=== PATIENT | female | born 1990 | race Caucasian/White ===

== ENCOUNTER 2021-10-02 16:52 | Emergency (ER) | payer SELFPAY ==
--- NOTE | 2021-10-02 17:04 | EDM.PDOC ---
ED HPI GENERAL MEDICAL PROBLEM - General Stated Complaint: COVID, VOMITTING, DIARRHEA Time Seen by Provider: 10/02/21 16:58 Source of Information: Reports: Patient History Limitations: Reports: No Limitations - History of Present Illness INITIAL COMMENTS - FREE TEXT/NARRATIVE: HISTORY AND PHYSICAL: History of present illness: The patient is a 30-year-old female who presents to the emergency department after testing positive for a home COVID test with complaints of vomiting, muscle aches, headache, earache, diarrhea, coughing, and nausea that started on 09/27/2021. The patient states that she is unable to drink or eat as she is unable to keep it down. The patient states that she has had occasional chills and has not been checking her temperature at home. Patient denies shortness of breath at this time. Patient denies any change in vision, syncope or near syncope. Denies any chest pain, back pain, or shortness of breath. Denies any constipation or dysuria. Has not noted any blood in urine or stool. Review of systems: As per history of present illness and below otherwise all systems reviewed and negative. Past medical history: As per history of present illness and as reviewed below otherwise noncontributory. Surgical history: As per history of present illness and as reviewed below otherwise noncontributory. Social history: See social history for further information Family history: As per history of present illness and as reviewed below otherwise noncontributory. Physical exam: General: Well developed and well nourished. Alert and orientated x 3. Nontoxic in appearance and in no acute distress. Vital signs are stable and have been reviewed by me. Nursing notes were reviewed. HEENT: Atraumatic, normocephalic, pupils equal and reactive bilaterally, negative for conjunctival pallor or scleral icterus, mucous membranes moist, TMs normal bilaterally, throat clear, neck supple, nontender, trachea midline. No drooling or trismus noted. No meningeal signs. No hot potato voice noted. Lungs: Clear to auscultation bilaterally. No wheezes, rales, or rhonchi. Chest nontender. Normal work of breathing, no accessory muscles used. Heart: S1S2, regular rate and rhythm without overt murmur, gallops, or rubs. No JVD. No peripheral edema Abdomen: Soft, nondistended, nontender. Normoactive bowel sounds. Negative for masses or costovertebral tenderness. Skin: Intact, warm, dry. No lesions or rashes noted. Hematologic: No petechiae or purpra. Mucosa appropriate color and normal nail bed color and refill. Extremities: Atraumatic, moves all extremities per self without difficulty or deficits, negative for cords or calf pain. Neurovascular unremarkable. Neuro: Awake, alert, oriented. Cranial nerves II through XII unremarkable. Cerebellum unremarkable. Motor and sensory unremarkable throughout. Exam nonfocal. Psychiatric: Mood and affect are appropriate. Normal thought process. Answering questions appropriately. Notes: *This patient was seen and evaluated during the 2019 SARS-CoV-2 novel coronavirus pandemic period. Community viral transmission is ongoing at time of this encounter and the emergency department is operating under pandemic response procedures. As stated above the patient is a 30-year-old female who tested positive for Covid at home. She is complaining of vomiting, muscle aches, headache, earaches, diarrhea, coughing and nausea. She has not been drinking or eating for the last 5 days. We will do a Covid work-up. I will treat the patient with IV fluids, Toradol, and Zofran. The patient is agreeable with this plan. The patient remains tachycardic after 1 L of IV fluids. I will order another liter and do a D-dimer. The patient's D-dimer is slightly elevated at 0.94 and so I will order a PE study of the chest. CT chest angio IMPRESSION: 1. No evidence of pulmonary thromboemboli. 2. Bilateral COVID-19 pneumonia. I informed the patient of the results and we discussed the benefits and risk of the monoclonal antibodies. I obtain the patient's consent for the monoclonal antibodies as she has a BMI of over 25 and she is not vaccinated against COVID-19. I sent an prescription for Zofran 4 mg ODT every 6 hours as needed for nausea to the patient's pharmacy. I gave the patient detailed instructions on when she would need to return to the emergency department such as when her lips turn blue or if she would like to get a oxygen saturation monitor and if it drops below 90%. The patient verbalized understanding. Patient is agreeable with this discharge plan I have talked with the patient about today's findings, in addition to providing specific details for plan of care. Reassessment at the time of disposition demonstrates that the patient is in no acute distress. The patient is stable for discharge, counseling was provided and we discussed in great detail signs and symptoms that would prompt them to return to the Emergency Department. Medication, follow up and supportive care measures were reviewed and discussed. Voices understanding and is agreeable to plan of care. Denies any further questions or concerns at this time. Diagnostics: CBC, CMP, CXR, EKG, Covid/flu swab Therapeutics: IV fluids, Toradol, Zofran Prescription: Zofran 4 mg ODT every 6 hours as needed for nausea Impression: COVID-19 pneumonia, COVID-19 Plan: 1. Your COVID-19 screening is positive. That means you do have the coronavirus and you are considered contagious. Your vital signs and oxygen saturation are well enough that you were able to monitor your symptoms at home. Continue to monitor for trouble breathing, new confusion or inability to arouse, bluish lips or face or any of the other symptoms we discussed -if this occurs please return to the emergency room. 1a. You were set up for monoclonal antibodies. I have given you a patient actually can I have received your authorization after we discussed the risk and benefits. Be sure to answer your phone when the clinic calls for your appointment. You only had 10 days from symptom onset to get this completed. 1b. 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 2. Please self quarantine until cleared by [facility] Department. Inform any persons that you have been in contact with since you started becoming symptomatic that you have tested positive; they should be made aware and take the appropriate steps as needed. 3. You can take NyQuil during the evening to help get a restful night sleep. May alternate Tylenol and ibuprofen as needed for pain and fever management. 4. The [facility] health department will be calling you and following up with you. The [place] COVID 19 Hotline phone number , They are open Monday - Monday 7am - 7pm. Follow up with your primary care provider for re-evaluation and re-testing after the 10 day quarantine and discuss when you should be seen. Definitive disposition and diagnosis as appropriate pending reevaluation and review of above. Bilateral Abdomen Pain Score (Numeric/FACES): 5 - Related Data Allergies Allergy/AdvReac Type Severity Reaction Status Date / Time No Known Allergies Allergy Verified 10/02/21 17:08 Home Meds: Home Meds Ondansetron [Zofran ODT] 4 mg PO Q6H PRN #10 tab.dis 10/02/21 [Rx] ED ROS GENERAL - Review of Systems Review Of Systems: Comprehensive ROS is negative, except as noted in HPI. ED EXAM, GENERAL - Physical Exam Exam: See Below (See dictation) Course - Vital Signs Last Recorded V/S: Last Vital Signs Temp 100 F 10/02/21 17:09 Pulse 106 H 10/02/21 21:26 Resp 18 10/02/21 21:26 BP 126/86 10/02/21 21:26 Pulse Ox 97 10/02/21 21:26 - Orders/Labs/Meds Orders: Active Orders 24 hr Category Date Time Status Sodium Chloride 0.9% [Saline Flush] Med 10/02/21 17:28 Active 10 ml FLUSH ASDIRECTED PRN Sodium Chloride 0.9% [Saline Flush] Med 10/02/21 17:28 Active 2.5 ml FLUSH ASDIRECTED PRN Saline Lock Insert [OM.PC] Stat Oth 10/02/21 17:28 Ordered Medication Orders Sodium Chloride (Sodium Chloride 0.9% 10 Ml Syringe) 10 ml FLUSH ASDIRECTED PRN PRN Reason: Keep Vein Open Last Admin: 10/02/21 17:37 Dose: 10 ml Documented by: FERNANDO Sodium Chloride (Sodium Chloride 0.9% 2.5 Ml Syringe) 2.5 ml FLUSH ASDIRECTED PRN PRN Reason: Keep Vein Open Last Admin: 10/02/21 17:38 Dose: 2.5 ml Documented by: FERNANDO Labs: Laboratory Tests 10/02/21 10/02/21 10/02/21 Range/Units 17:41 17:41 17:41 WBC 4.00 (4.0-11.0) K/uL RBC 4.83 (4.30-5.90) M/uL Hgb 14.6 (12.0-16.0) g/dL Hct 43.2 (36.0-46.0) % MCV 89.4 (80.0-98.0) fL MCH 30.2 (27.0-32.0) pg MCHC 33.8 (31.0-37.0) g/dL RDW Std Deviation 42.7 (28.0-62.0) fl RDW Coeff of [place] 13 (11.0-15.0) % Plt Count 144 L (150-400) K/uL MPV 9.70 (7.40-12.00) fL Neut % (Auto) 79.2 (48.0-80.0) % Lymph % (Auto) 18.0 (16.0-40.0) % [place] % (Auto) 2.8 (0.0-15.0) % Eos % (Auto) 0.0 (0.0-7.0) % Baso % (Auto) 0.0 (0.0-1.5) % Neut # (Auto) 3.2 (1.4-5.7) K/uL Lymph # (Auto) 0.7 (0.6-2.4) K/uL [place] # (Auto) 0.1 (0.0-0.8) K/uL Eos # (Auto) 0.0 (0.0-0.7) K/uL Baso # (Auto) 0.0 (0.0-0.1) K/uL Nucleated RBC % 0.0 /100WBC Nucleated RBCs # 0 K/uL D-Dimer, Quantitative 0.94 H (0.0-0.50) mg/L FEU Sodium 139 (136-145) mmol/L Potassium 3.7 (3.5-5.1) mmol/L Chloride 101 (98-107) mmol/L Carbon Dioxide 26.8 (21.0-32.0) mmol/L BUN 8 (7.0-18.0) mg/dL Creatinine 0.9 (0.6-1.0) mg/dL Est Cr Clr Drug Dosing 69.60 mL/min Estimated GFR (MDRD) > 60.0 ml/min Glucose 98 (74-106) mg/dL Calcium 8.1 L (8.5-10.1) mg/dL Total Bilirubin 0.2 (0.2-1.0) mg/dL AST 37 (15-37) IU/L ALT 45 (14-63) IU/L Alkaline Phosphatase 68 (46-116) U/L Total Protein 7.3 (6.4-8.2) g/dL Albumin 3.5 (3.4-5.0) g/dL Globulin 3.8 (2.6-4.0) g/dL Albumin/Globulin Ratio 0.9 (0.9-1.6) Influenza Type A RNA (NEGATIVE) Influenza Type B RNA (NEGATIVE) SARS-CoV-2 RNA (DANICA) (NEGATIVE) 10/02/21 Range/Units 17:43 WBC (4.0-11.0) K/uL RBC (4.30-5.90) M/uL Hgb (12.0-16.0) g/dL Hct (36.0-46.0) % MCV (80.0-98.0) fL MCH (27.0-32.0) pg MCHC (31.0-37.0) g/dL RDW Std Deviation (28.0-62.0) fl RDW Coeff of [place] (11.0-15.0) % Plt Count (150-400) K/uL MPV (7.40-12.00) fL Neut % (Auto) (48.0-80.0) % Lymph % (Auto) (16.0-40.0) % [place] % (Auto) (0.0-15.0) % Eos % (Auto) (0.0-7.0) % Baso % (Auto) (0.0-1.5) % Neut # (Auto) (1.4-5.7) K/uL Lymph # (Auto) (0.6-2.4) K/uL [place] # (Auto) (0.0-0.8) K/uL Eos # (Auto) (0.0-0.7) K/uL Baso # (Auto) (0.0-0.1) K/uL Nucleated RBC % /100WBC Nucleated RBCs # K/uL D-Dimer, Quantitative (0.0-0.50) mg/L FEU Sodium (136-145) mmol/L Potassium (3.5-5.1) mmol/L Chloride (98-107) mmol/L Carbon Dioxide (21.0-32.0) mmol/L BUN (7.0-18.0) mg/dL Creatinine (0.6-1.0) mg/dL Est Cr Clr Drug Dosing mL/min Estimated GFR (MDRD) ml/min Glucose (74-106) mg/dL Calcium (8.5-10.1) mg/dL Total Bilirubin (0.2-1.0) mg/dL AST (15-37) IU/L ALT (14-63) IU/L Alkaline Phosphatase (46-116) U/L Total Protein (6.4-8.2) g/dL Albumin (3.4-5.0) g/dL Globulin (2.6-4.0) g/dL Albumin/Globulin Ratio (0.9-1.6) Influenza Type A RNA NEGATIVE (NEGATIVE) Influenza Type B RNA NEGATIVE (NEGATIVE) SARS-CoV-2 RNA (DANICA) POSITIVE H (NEGATIVE) Meds: Medications Generic Name Dose Route Start Last Admin Trade Name Kalee PRN Reason Stop Dose Admin Sodium Chloride 10 ml 10/02/21 17:28 10/02/21 17:37 Sodium Chloride 0.9% 10 Ml Syringe FLUSH 10 ml ASDIRECTED PRN Administration Keep Vein Open Sodium Chloride 2.5 ml 10/02/21 17:28 10/02/21 17:38 Sodium Chloride 0.9% 2.5 Ml Syringe FLUSH 2.5 ml ASDIRECTED PRN Administration Keep Vein Open Discontinued Medications Generic Name Dose Route Start Last Admin Trade Name Kalee PRN Reason Stop Dose Admin Sodium Chloride 1,000 mls @ 999 mls/hr 10/02/21 17:28 10/02/21 17:40 Normal Saline IV 10/02/21 18:28 999 mls/hr .BOLUS ONE Administration Sodium Chloride 1,000 mls @ 999 mls/hr 10/02/21 18:52 10/02/21 18:58 Normal Saline IV 10/02/21 19:52 999 mls/hr .BOLUS ONE Administration Iopamidol 100 ml 10/02/21 19:46 10/02/21 20:12 Iopamidol 755 Mg/Ml 500 Ml Multipack Bottle IVPUSH 10/02/21 19:47 100 ml ONETIME ONE Administration Ketorolac Tromethamine 30 mg 10/02/21 17:28 10/02/21 17:36 Ketorolac 30 Mg/Ml Sdv IVPUSH 10/02/21 17:29 30 mg ONETIME ONE Administration Metoclopramide HCl 5 mg 10/02/21 20:33 10/02/21 20:35 Metoclopramide 10 Mg/2 Ml Sdv IVPUSH 10/02/21 20:34 5 mg ONETIME ONE Administration Metoclopramide HCl Confirm 10/02/21 20:34 Metoclopramide 10 Mg/2 Ml Sdv Administered 10/02/21 20:35 Dose 10 mg .ROUTE .STK-MED ONE Ondansetron HCl 4 mg 10/02/21 17:28 10/02/21 17:37 Ondansetron 4 Mg/2 Ml Sdv IVPUSH 10/02/21 17:29 4 mg ONETIME ONE Administration Departure - Departure Time of Disposition: 21:12 Disposition: Home, Self-Care 01 Condition: Good Clinical Impression: COVID-19, 2019 novel coronavirus-infected pneumonia (NCIP) - Discharge Information *PRESCRIPTION DRUG MONITORING PROGRAM REVIEWED*: Not Applicable *COPY OF PRESCRIPTION DRUG MONITORING REPORT IN PATIENT YARELI: Not Applicable Prescriptions: Ondansetron [Zofran ODT] 4 mg PO Q6H PRN #10 tab.dis PRN Reason: Nausea Instructions: COVID-19: What to Do If You Are Sick- [facility] (12/30/2020) Referrals: Jonathan Klein MD [Primary Care Provider] - Forms: ED Department Discharge Additional Instructions: The following information is given to patients seen in the emergency department who are being discharged to home. This information is to outline your options for follow-up care. We provide all patients seen in our emergency department with a follow-up referral. The need for follow-up, as well as the timing and circumstances, are variable depending upon the specifics of your emergency department visit. If you don't have a primary care physician on staff, we will provide you with a referral. We always advise you to contact your personal physician following an emergency department visit to inform them of the circumstance of the visit and for follow-up with them and/or the need for any referrals to a consulting specialist. The emergency department will also refer you to a specialist when appropriate. This referral assures that you have the opportunity for follow-up care with a specialist. All of these measure are taken in an effort to provide you with optimal care, which includes your follow-up. Under all circumstances we always encourage you to contact your private physician who remains a resource for coordinating your care. When calling for follow-up care, please make the office aware that this follow-up is from your recent emergency room visit. If for any reason you are refused follow-up, please contact the [facility] Emergency Department at and asked to speak to the emergency department charge nurse. [facility] [address] [place] [id number] [facility] [address] [place] [id number] Plan: 1. Your COVID-19 screening is positive. That means you do have the coronavirus and you are considered contagious. Your vital signs and oxygen saturation are well enough that you were able to monitor your symptoms at home. Continue to monitor for trouble breathing, new confusion or inability to arouse, bluish lips or face or any of the other symptoms we discussed -if this occurs please return to the emergency room. 1a. You were set up for monoclonal antibodies. I have given you a patient actually can I have received your authorization after we discussed the risk and benefits. Be sure to answer your phone when the clinic calls for your appointment. You only had 10 days from symptom onset to get this completed. 1b. 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 2. Please self quarantine until cleared by [facility] Department. Inform any persons that you have been in contact with since you started becoming sy mptomatic that you have tested positive; they should be made aware and take the appropriate steps as needed. 3. You can take NyQuil during the evening to help get a restful night sleep. May alternate Tylenol and ibuprofen as needed for pain and fever management. 4. The [facility] department will be calling you and following up with you. The [place] COVID 19 Hotline phone number , They are open Monday - Monday 7am - 7pm. Follow up with your primary care provider for re-evaluation and re-testing after the 10 day quarantine and discuss when you should be seen. Sepsis Event Note (ED) - Focused Exam Vital Signs: Vital Signs Temp Pulse Resp BP Pulse Ox 10/02/21 21:26 106 H 18 126/86 97 10/02/21 20:30 100 18 131/84 96 10/02/21 17:09 100 F 119 H 17 151/92 H 96 - My Orders Last 24 Hours: My Active Orders 10/02/21 17:28 Sodium Chloride 0.9% [Saline Flush] 10 ml FLUSH ASDIRECTED PRN Sodium Chloride 0.9% [Saline Flush] 2.5 ml FLUSH ASDIRECTED PRN Saline Lock Insert [OM.PC] Stat - Assessment/Plan Last 24 Hours: My Active Orders 10/02/21 17:28 Sodium Chloride 0.9% [Saline Flush] 10 ml FLUSH ASDIRECTED PRN Sodium Chloride 0.9% [Saline Flush] 2.5 ml FLUSH ASDIRECTED PRN Saline Lock Insert [OM.PC] Stat
[2021-10-02] MEDS ORDERED: Sodium Chloride 0.9% 10 ML Syringe FLUSH PRN (17:28)
[2021-10-02] MEDS ORDERED: Ketorolac 30 MG/ML SDV IVPUSH ONE (17:28)
[2021-10-02] MEDS ORDERED: Sodium Chloride 0.9% 1,000 ML IV ONE ×2 (17:28→18:52)
[2021-10-02] MEDS ORDERED: Ondansetron 4 MG/2 ML SDV IVPUSH ONE (17:28)
[2021-10-02] MEDS ORDERED: Sodium Chloride 0.9% 2.5 ML Syringe FLUSH PRN (17:28)
--- NOTE | 2021-10-02 18:04 | PCM.EKG ---
#1 Interpretation EKG Date: 10/02/21 (]) Time: 18:04 EKG Interpretation Comments: Sinus tachycardia rate of 114 otherwise unremarkable no acute ischemia normal intervals
--- NOTE | 2021-10-02 18:21 | CR ---
INDICATION: Cough, shortness of breath. TECHNIQUE: Portable AP chest radiograph. COMPARISON: None available. FINDINGS: Low lung volumes. Mild patchy bibasilar opacities. No pneumothorax or pleural effusion. Cardiac size within normal limits. IMPRESSION: Low volume study. Mild patchy bibasilar opacities may reflect atelectasis/crowding and/or atypical infections such as COVID-19. Dictated by Sukhdeep Velazco MD @ 10/02/2021 6:20:22 PM Dictated by: Sukhdeep Velazco MD @ 10/02/2021 18:20:28 (Electronically Signed)
[2021-10-02 18:25] LABS: BLOOD UREA NITROGEN,BUN 8 mg/dL (7.0-18.0); CARBON DIOXIDE,CO2 26.8 mmol/L (21.0-32.0); CHLORIDE,CL 101 mmol/L (98-107); GLUCOSE RANDOM 98 mg/dL (74-106); POTASSIUM,K 3.7 mmol/L (3.5-5.1); SODIUM,NA 139 mmol/L (136-145)
[2021-10-02 18:28] LABS: CORONAVIRUS COVID-19 NAA POSITIVE (NEGATIVE); INFLUENZA A NAA NEGATIVE (NEGATIVE); INFLUENZA B NAA NEGATIVE (NEGATIVE)
[2021-10-02] MEDS ORDERED: Iopamidol 755 MG/ML 500 ML Multipack Bottle IVPUSH ONE (19:46)
[2021-10-02] MEDS ORDERED: Metoclopramide 10 MG/2 ML SDV IVPUSH ONE (20:33)
[2021-10-02] MEDS ORDERED: Metoclopramide 10 MG/2 ML SDV ONE (20:34)
--- NOTE | 2021-10-02 20:50 | CT ---
INDICATION: Tachycardia; elevated D-dimer; rule out PE. COMPARISON: Chest radiograph October 02, 2021. TECHNIQUE: CT chest with intravenous contrast; coronal and sagittal reformats. FINDINGS: No evidence of pulmonary thromboemboli. No abnormal mediastinal or hilar lymphadenopathy. Bilateral COVID-19 pneumonia. No evidence of pleural effusion or chest wall pathology. Normal size cardiac silhouette without any pericardial effusion. Limited CT through the upper abdomen is unremarkable. IMPRESSION: 1. No evidence of pulmonary thromboemboli. 2. Bilateral COVID-19 pneumonia. Please note that all CT scans at this facility use dose modulation, iterative reconstruction, and/or weight-based dosing when appropriate to reduce radiation dose to as low as reasonably achievable. Dictated by Huan Staton MD @ 10/02/2021 8:49:02 PM (Electronically Signed)
== END 2021-10-02 21:33 | disposition home or self-care (01) ==
LOC: MW.ED 16:52
DX: U07.1 COVID-19 (principal); J12.82 Pneumonia due to coronavirus disease 2019
CPT/HCPCS: 0240U; 36415; 71045; 71275; 80053; 85025; 85379; 93005; 96374; 96375; 99284; J1885; J2405; J2765; J7030; Q9967

== ENCOUNTER 2021-10-04 08:33 | Emergency (ER) | payer SELFPAY ==
[2021-10-04] MEDS ORDERED: Ketorolac 15 MG/ML SDV IVPUSH ONE (09:04)
[2021-10-04] MEDS ORDERED: Ondansetron 4 MG/2 ML SDV IVPUSH ONE (09:04)
[2021-10-04] MEDS ORDERED: Ketorolac 30 MG/ML SDV IVPUSH ONE (09:13)
[2021-10-04] MEDS ORDERED: Dextrose 5%-Lactated Ringers 1,000 ML IV SCH (09:15)
[2021-10-04] MEDS ORDERED: Lactated Ringers 1,000 ML IV SCH (09:15)
--- NOTE | 2021-10-04 09:21 | EDM.PDOC ---
ED HPI GENERAL MEDICAL PROBLEM - General Chief Complaint: Gastrointestinal Problem Stated Complaint: COVID, WORSENING SYMPTOMS Time Seen by Provider: 10/04/21 09:00 - History of Present Illness INITIAL COMMENTS - FREE TEXT/NARRATIVE: CHIEF COMPLAINT(S): "Covid." HISTORY OF PRESENT ILLNESS: This is a 30-year-old woman without any significant past medical history who comes to the emergency department with a chief complaint of "Covid." The patient states that she presents to the emergency department because of "Covid." Patient states that she has had it for approximately 7 days now and has not been able to eat or drink anything in the last 7 days. She states that she is tried to drink water, [id number] medications, and Ensure without any ability to do so. She states that she has tried Zofran but this has not helped. She denies any fevers, chills, chest pain or shortness of breath. She denies any lower extremity edema. She denies any other symptoms. REVIEW OF SYSTEMS: Constitutional: Denies fever, chills. Eyes: Denies eye pain Ears, Nose, Mouth, & Throat: Denies earache Cardiovascular: Denies chest pain Respiratory: Denies shortness of breath Gastrointestinal: Positive for vomiting. Denies hematemesis, bilious emesis, melena, hematochezia, abdominal pain Genitourinary: Denies hematuria Skin:Denies a rash MSK: Denies joint pain Neurological: Denies blurred vision Psychiatric: Denies depression PAST MEDICAL HISTORY: As per history of present illness and as reviewed below otherwise noncontributory. SURGICAL HISTORY: As per history of present illness and as reviewed below otherwise noncontributory. SOCIAL HISTORY: As per history of present illness and as reviewed below otherwise noncontributory. FAMILY HISTORY: As per history of present illness and as reviewed below otherwise noncontributory. EXAMINATION OF ORGAN SYSTEMS/BODY AREAS: Constitutional: Blood pressure was 130/85, heart rate 102, respiratory rate 18 with an oxygen saturation of 96% on room air. Temperature 36.9 General: Young woman who does not appear to be in acute distress Psychiatric: Appropriate mood and affect. Eyes: No scleral icterus or conjunctival erythema ENMT: Dry mucous membranes. No pharyngeal erythema. No stridor, drooling, trismus Cardiovascular: Regular, rate, and rhythm. No gallops, murmurs, or rubs. Bilateral upper extremity pulses symmetric and intact. No peripheral edema. No JVD. Respiratory: Lungs clear to auscultation bilaterally. No wheezes, rales, or rhonchi. Gastrointestinal: Soft, non-tender, non-distended. Normoactive bowel sounds no rebound or guarding Genitourinary: No suprapubic tenderness Musculoskeletal: Normal range of motion. Skin: No lesions or abrasions. Neurological: Alert, GCS 15 MEDICAL DECISION MAKING AND COURSE IN THE ED WITH INTERPRETATION/REVIEW OF DIAGNOSTIC STUDIES: This is a 30-year-old woman without any significant past medical history other than recent diagnosis of COVID-19 who comes to the emergency department with vomiting and nausea for the last 7 days after being diagnosed with COVID-19. On review the patient's chart the patient did test positive on October 02, 2021 and had a work-up that day including a CT angiogram of the chest which did not reveal any evidence of pulmonary embolism. At this time patient is mildly tachycardic and does appear to be dehydrated. We will provide the patient with 1 L of D5 lactated Ringer's, liter of lactated Ringer's bolus, and 4 mg of IV Zofran. I do not believe any labs or repeat imaging are indicated. I did offer the patient Phenergan suppository given her inability to tolerate p.o. at home, the patient laughed and stated that she would rather swallow tablets. Patient was observed here in the emergency department and was able to tolerate p.o. At this time I did discuss that she would be stable for discharge. I discussed treatment of her nausea at home with Phenergan or Zofran. She did not want rectal Phenergan therefore I prescribed her with p.o. Phenergan. I did discuss with her that she should use 1 or the other and discussed the importance of p.o. hydration. She was given strict return precautions. The patient was amenable to discharge and had no further questions. DISPOSITION: The patient was discharged home in stable condition. The patient will follow up with primary care physician after isolation. CONDITION: Fair PROCEDURES: None FINAL IMPRESSION(S)/DIAGNOSES: 1. Acute vomiting Jt Wiggins M.D. abdomen Pain Score (Numeric/FACES): 6 - Related Data Allergies Allergy/AdvReac Type Severity Reaction Status Date / Time No Known Allergies Allergy Verified 10/04/21 08:58 Home Meds: Home Meds Ondansetron [Zofran ODT] 4 mg PO Q6H PRN #10 tab.dis 10/02/21 [Rx] Promethazine [Phenergan] 25 mg PO Q8H PRN #10 tab 10/04/21 [Rx] Past Medical History Cardiovascular History: Reports: Hypertension - Infectious Disease History Infectious Disease History: Reports: Novel Coronavirus - Past Surgical History GI Surgical History: Reports: Appendectomy Social & Family History - Family History Family Medical History: No Pertinent Family History - Tobacco Use Tobacco Use Status *Q: Never Tobacco User - Caffeine Use Caffeine Use: Reports: Soda - Recreational Drug Use Recreational Drug Use: Yes Recreational Drug Type: Reports: Marijuana/Hashish Recreational Drug Use Frequency: Daily ED ROS GENERAL - Review of Systems Review Of Systems: See Below ED EXAM, GENERAL - Physical Exam Exam: See Below Course - Vital Signs Last Recorded V/S: Last Vital Signs Temp 36.7 C 10/04/21 13:03 Pulse 91 10/04/21 13:03 Resp 18 10/04/21 13:03 BP 127/71 10/04/21 13:03 Pulse Ox 96 10/04/21 13:03 - Orders/Labs/Meds Meds: Medications Discontinued Medications Generic Name Dose Route Start Last Admin Trade Name Freq PRN Reason Stop Dose Admin Dextrose/Lactated Ringer's 1,000 mls @ 999 mls/hr 10/04/21 09:15 10/04/21 09:28 Dextrose 5%-Lactated Ringers IV 999 mls/hr ASDIRECTED CATRACHITO Administration Lactated Ringer's 1,000 mls @ 999 mls/hr 10/04/21 09:15 10/04/21 09:38 Ringers, Lactated IV 999 mls/hr ASDIRECTED CATRACHITO Administration Ketorolac Tromethamine 15 mg 10/04/21 09:04 10/04/21 09:19 Ketorolac 15 Mg/Ml Sdv IVPUSH 10/04/21 09:05 Not Given ONETIME ONE Ketorolac Tromethamine 30 mg 10/04/21 09:13 10/04/21 09:28 Ketorolac 30 Mg/Ml Sdv IVPUSH 10/04/21 09:14 30 mg ONETIME ONE Administration Ondansetron HCl 4 mg 10/04/21 09:04 10/04/21 09:28 Ondansetron 4 Mg/2 Ml Sdv IVPUSH 10/04/21 09:05 4 mg ONETIME ONE Administration Departure - Departure Time of Disposition: 12:52 Disposition: Home, Self-Care 01 Condition: Fair Clinical Impression: Vomiting - Discharge Information *PRESCRIPTION DRUG MONITORING PROGRAM REVIEWED*: No *COPY OF PRESCRIPTION DRUG MONITORING REPORT IN PATIENT YARELI: No Prescriptions: Promethazine [Phenergan] 25 mg PO Q8H PRN #10 tab PRN Reason: Nausea Instructions: Nausea and Vomiting, Adult Referrals: PCP,None [Primary Care Provider] - Forms: ED Department Discharge Additional Instructions: Your evaluated today on an emergent basis. At this time I do believe your v omiting and nausea was likely secondary to dehydration. I recommend you use Zofran as prescribed or switch to Phenergan 25 mg 3 times a day. It is important that you maintain hydration. As discussed if there is Regeneron availability we you will be contacted for an infusion. Otherwise continue with your isolation and follow-up with primary care physician after your isolation has completed. [facility] - Primary [facility] [address] [place] [address] [place] [address] Your medications were sent to [facility] The patient is informed of any results of their evaluation and diagnostic workup and all questions are answered. They are given discharge instructions and return precautions. The patient is stable for discharge. The patient states they understand and agree with the plan and that they will return if their symptoms get worse or if they have any new concerns. The following information is given to patients seen in the emergency department who are being discharged to home. This information is to outline your options for follow-up care. We provide all patients seen in our emergency department with a follow-up referral. The need for follow-up, as well as the timing and circumstances, are variable depending upon the specifics of your emergency department visit. If you don't have a primary care physician on staff, we will provide you with a referral. We always advise you to contact your personal physician following an emergency department visit to inform them of the circumstance of the visit and for follow-up with them and/or the need for any referrals to a consulting specialist. The emergency department will also refer you to a specialist when appropriate. This referral assures that you have the opportunity for follow-up care with a specialist. All of these measure are taken in an effort to provide you with optimal care, which includes your follow-up. Under all circumstances we always encourage you to contact your private physician who remains a resource for coordinating your care. When calling for follow-up care, please make the office aware that this follow-up is from your recent emergency room visit. If for any reason you are refused follow-up, please contact the [facility] Emergency Department at and asked to speak to the emergency department charge nurse. Sepsis Event Note (ED) - Evaluation Sepsis Screening Result: No Definite Risk
== END 2021-10-04 13:03 | disposition home or self-care (01) ==
LOC: MW.ED 08:33
DX: R11.10 Vomiting, unspecified (principal); I10 Essential (primary) hypertension; Z86.16 Personal history of COVID-19
CPT/HCPCS: 96374; 96375; 99283; J1885; J2405; J7120; J7121

== ENCOUNTER 2021-10-06 05:39 | Inpatient (IN) | payer SELFPAY ==
[2021-10-06] MEDS ORDERED: Ketorolac 30 MG/ML SDV IM STA (05:50)
--- NOTE | 2021-10-06 06:02 | EDM.PDOC ---
<Jt Wiggins - Last Filed: 10/06/21 06:46> ED HPI GENERAL MEDICAL PROBLEM - General Chief Complaint: Respiratory Problem Stated Complaint: COVID POSITIVE, SHORTNESS OF BREATH Time Seen by Provider: 10/06/21 05:46 - History of Present Illness INITIAL COMMENTS - FREE TEXT/NARRATIVE: CHIEF COMPLAINT(S): Shortness of breath HISTORY OF PRESENT ILLNESS: This is a 30-year-old woman with out any significant past medical history who presents to the emergency department with a chief complaint of shortness of breath. The patient states that she is experiencing worsening shortness of breath. She states that she thinks that her cough is worsening it. She denies any chest pain and states that her cough is nonproductive. She states that she has had fever and chills and has been using NyQuil. Last dose was approximately 3 hours ago. She states that she has been able to tolerate p.o. and she did get her Regeneron infusion yesterday. She denies any lower extremity edema. She states that she is mainly concerned because she has had increase shortness of breath. REVIEW OF SYSTEMS: Constitutional: Positive for fever and chills Eyes: Denies eye pain Ears, Nose, Mouth, & Throat: Denies earache Cardiovascular: Denies chest pain Respiratory: Positive for shortness of breath and nonproductive cough Gastrointestinal: Denies Nausea, vomiting, diarrhea, hematochezia. Genitourinary: Denies hematuria Skin:Denies a rash MSK: Denies joint pain Neurological: Denies blurred vision Psychiatric: Denies depression PAST MEDICAL HISTORY: As per history of present illness and as reviewed below otherwise noncontributory. SURGICAL HISTORY: As per history of present illness and as reviewed below otherwise noncontributory. SOCIAL HISTORY: As per history of present illness and as reviewed below o therwise noncontributory. FAMILY HISTORY: As per history of present illness and as reviewed below otherwise noncontributory. EXAMINATION OF ORGAN SYSTEMS/BODY AREAS: Constitutional: Blood pressure is 147/88, heart rate 118, respiratory rate 24 with an oxygen saturation of 93% on room air. Temperature 39.1 General: Young woman who appears to be mildly short of breath otherwise no acute distress Psychiatric: Appears anxious but is cooperative Eyes: No scleral icterus or conjunctival erythema ENMT: Moist mucous membranes. No pharyngeal erythema Cardiovascular: Tachycardic but regular no gallops, murmurs, or rubs. Bilateral upper extremity pulses symmetric and intact. No peripheral edema. No JVD. Respiratory: Lungs clear to auscultation bilaterally. No wheezes, rales, or rhonchi. Patient is taking small short breaths. Gastrointestinal: Soft, non-tender, non-distended. Normoactive bowel sounds Genitourinary: No suprapubic tenderness Musculoskeletal: Normal range of motion. Skin: No lesions or abrasions. Neurological: Alert, GCS 15 MEDICAL DECISION MAKING AND COURSE IN THE ED WITH INTERPRETATION/REVIEW OF DIAGNOSTIC STUDIES: This is a 30-year-old woman with a past medical history of recent diagnosis of COVID-19, recent ER visit for inability to tolerate p.o. and recent antibody infusion yesterday who comes to the emergency department with shortness of breath. The patient is febrile at this time, tachycardic and borderline hypoxic. At this time will obtain a repeat chest x-ray, EKG and provide the patient with Toradol. I do not believe repeat labs are indicated. Patient has already received a CT angiogram of the chest and there was no evidence of any pulmonary embolism. I do not believe repeat CT angiogram is necessary. We will evaluate the patient for improvement and I do anticipate discharge. I do believe there is a degree of anxiety involved in addition to COVID-19 pneumonia. The radiological images were viewed by myself along with reading the report from the radiologist. Chest x-ray reveals small ill-defined infiltrates in both lungs which is more severe on the left. These are unchanged if not slightly worse. No effusion or pneumothorax. No otherwise acute findings. EKG was unchanged from prior. DISPOSITION: [facility] pending reevaluation and final disposition CONDITION: Fair PROCEDURES: None FINAL IMPRESSION(S)/DIAGNOSES: 1. Acute dyspnea secondary to COVID-19 pneumonia Jt Wiggins M.D. generalized Pain Score (Numeric/FACES): 5 - Related Data Allergies Allergy/AdvReac Type Severity Reaction Status Date / Time No Known Allergies Allergy Verified 10/06/21 05:47 Home Meds: Home Meds Ondansetron [Zofran ODT] 4 mg PO Q6H PRN #10 tab.dis 10/02/21 [Rx] Promethazine [Phenergan] 25 mg PO Q8H PRN #10 tab 10/04/21 [Rx] Past Medical History HEENT History: Reports: None Cardiovascular History: Reports: Hypertension Respiratory History: Reports: None Gastrointestinal History: Reports: None Genitourinary History: Reports: None FULL STACK ENGINEER History: Reports: None Musculoskeletal History: Reports: None Neurological History: Reports: None Psychiatric History: Reports: None Endocrine/Metabolic History: Reports: None Insulin Pump Model and Jamb Cutter: None Hematologic History: Reports: None Immunologic History: Reports: None Oncologic (Cancer) History: Reports: None Dermatologic History: Reports: None - Infectious Disease History Infectious Disease History: Reports: Novel Coronavirus - Past Surgical History GI Surgical History: Reports: Appendectomy Social & Family History - Family History Family Medical History: No Pertinent Family History - Caffeine Use Caffeine Use: Reports: None - Recreational Drug Use Recreational Drug Use: No ED ROS GENERAL - Review of Systems Review Of Systems: See Below ED EXAM, GENERAL - Physical Exam Exam: See Below Departure - Departure Disposition: Home, Self-Care 01 Clinical Impression: COVID-19 - Discharge Information Referrals: Jonathan Klein MD [Primary Care Provider] - Forms: ED Department Discharge Sepsis Event Note (ED) - Evaluation Sepsis Screening Result: No Definite Risk <Con Jerome - Last Filed: 10/06/21 08:41> Course - Vital Signs Last Recorded V/S: Last Vital Signs Temp 102.4 F H 10/06/21 05:40 Pulse 103 H 10/06/21 08:26 Resp 19 10/06/21 08:26 BP 132/82 10/06/21 08:26 Pulse Ox 94 L 10/06/21 08:26 - Orders/Labs/Meds Orders: Active Orders 24 hr Category Date Time Status RT Post Treatment Assessment [RC] Click to Edit Care 10/06/21 07:22 Active RT Pre-Treatment Assessment [RC] Click to Edit Care 10/06/21 07:22 Active Sodium Chloride 0.9% [Normal Saline] 1,000 ml Med 10/06/21 07:49 Active IV .Bolus Saline Lock Insert [OM.PC] Stat Oth 10/06/21 07:49 Ordered Medication Orders Sodium Chloride (Normal Saline) 1,000 mls @ 999 mls/hr IV .Bolus ONE Stop: 10/06/21 08:49 Last Admin: 10/06/21 07:59 Dose: 999 mls/hr Documented by: FERNANDO Labs: Laboratory Tests 10/06/21 10/06/21 Range/Units 08:00 08:00 WBC 4.56 (4.0-11.0) K/uL RBC 4.99 (4.30-5.90) M/uL Hgb 15.1 (12.0-16.0) g/dL Hct 43.8 (36.0-46.0) % MCV 87.8 (80.0-98.0) fL MCH 30.3 (27.0-32.0) pg MCHC 34.5 (31.0-37.0) g/dL RDW Std Deviation 41.7 (28.0-62.0) fl RDW Coeff of [place] 13 (11.0-15.0) % Plt Count 144 L (150-400) K/uL MPV 9.40 (7.40-12.00) fL Neut % (Auto) 82.9 H (48.0-80.0) % Lymph % (Auto) 12.5 L (16.0-40.0) % [place] % (Auto) 3.5 (0.0-15.0) % Eos % (Auto) 0.9 (0.0-7.0) % Baso % (Auto) 0.2 (0.0-1.5) % Neut # (Auto) 3.8 (1.4-5.7) K/uL Lymph # (Auto) 0.6 (0.6-2.4) K/uL [place] # (Auto) 0.2 (0.0-0.8) K/uL Eos # (Auto) 0.0 (0.0-0.7) K/uL Baso # (Auto) 0.0 (0.0-0.1) K/uL Nucleated RBC % 0.0 /100WBC Nucleated RBCs # 0 K/uL Sodium 139 (136-145) mmol/L Potassium 3.6 (3.5-5.1) mmol/L Chloride 98 (98-107) mmol/L Carbon Dioxide 23.6 (21.0-32.0) mmol/L BUN 6 L (7.0-18.0) mg/dL Creatinine 0.9 (0.6-1.0) mg/dL Est Cr Clr Drug Dosing 69.60 mL/min Estimated GFR (MDRD) > 60.0 ml/min Glucose 96 (74-106) mg/dL Calcium 8.8 (8.5-10.1) mg/dL Total Bilirubin 0.4 (0.2-1.0) mg/dL AST 89 H (15-37) IU/L ALT 79 H (14-63) IU/L Alkaline Phosphatase 60 (46-116) U/L C-Reactive Protein 21.60 H (0.00-0.90) mg/dL Total Protein 7.9 (6.4-8.2) g/dL Albumin 3.3 L (3.4-5.0) g/dL Globulin 4.6 H (2.6-4.0) g/dL Albumin/Globulin Ratio 0.7 L (0.9-1.6) Meds: Medications Generic Name Dose Route Start Last Admin Trade Name Freq PRN Reason Stop Dose Admin Sodium Chloride 1,000 mls @ 999 mls/hr 10/06/21 07:49 10/06/21 07:59 Normal Saline IV 10/06/21 08:49 999 mls/hr .Bolus ONE Administration Discontinued Medications Generic Name Dose Route Start Last Admin Trade Name Freq PRN Reason Stop Dose Admin Acetaminophen 1,000 mg 10/06/21 07:49 10/06/21 07:58 Acetaminophen 500 Mg Tab PO 10/06/21 07:50 1,000 mg ONETIME ONE Administration Albuterol 1 gm 10/06/21 07:22 10/06/21 07:49 Albuterol 8 Gm Inhaler INH 10/06/21 07:23 1 puff ONETIME ONE Administration Dexamethasone 6 mg 10/06/21 07:49 10/06/21 07:58 Dexamethasone 10 Mg/Ml Sdv IVPUSH 10/06/21 07:50 6 mg ONETIME ONE Administration Ketorolac Tromethamine 30 mg 10/06/21 05:50 10/06/21 06:03 Ketorolac 30 Mg/Ml Sdv IM 10/06/21 05:51 30 mg ONETIME STA Administration - Re-Assessments/Exams Free Text/Narrative Re-Assessment/Exam: 10/06/21 07:01 Patient care transitioned from Dr Wiggins pending clinical reassessment 10/06/21 07:22 Patient is noting continued SOB. O2 levels remain 94-96% on RA. Will trial albuterol MDI although patient does not have any wheezing. Patient is requesting admission to hospital, although I do not have a good reason to keep her. We will reassess after albuterol MDI 10/06/21 07:53 On ambulation patient desaturates to 78% and becomes very symptomatic. Will plac e patient on 2-L NC and get basic labs, will anticipate admission. 10/06/21 07:57 Low suspicion PE as patient had negative angiogram a few days ago. 10/06/21 08:24 O2 saturation persistently 91-92% on 2-L so will increase to 3-L NC. Patient symptomatically feeling much better on O2. Will f/u labs and admit 10/06/21 08:36 CRP markedly elevated, otherwise grossly unremarkable labs. Will admit for hypoxia in setting of COVID-19 pneumonia Departure - Departure Time of Disposition: 08:37 Condition: Good Critical Care Note - Critical Care Note Total Time (mins): 35 Sepsis Event Note (ED) - Focused Exam Vital Signs: Vital Signs Temp Pulse Resp BP Pulse Ox 10/06/21 08:26 103 H 19 132/82 94 L 10/06/21 07:45 78 L 10/06/21 05:40 102.4 F H 118 H 24 H 147/88 H 93 L - My Orders Last 24 Hours: My Active Orders 10/06/21 07:22 RT Post Treatment Assessment [RC] Click to Edit RT Pre-Treatment Assessment [RC] Click to Edit 10/06/21 07:49 Sodium Chloride 0.9% [Normal Saline] 1,000 ml IV .Bolus Saline Lock Insert [OM.PC] Stat - Assessment/Plan Last 24 Hours: My Active Orders 10/06/21 07:22 RT Post Treatment Assessment [RC] Click to Edit RT Pre-Treatment Assessment [RC] Click to Edit 10/06/21 07:49 Sodium Chloride 0.9% [Normal Saline] 1,000 ml IV .Bolus Saline Lock Insert [OM.PC] Stat
--- NOTE | 2021-10-06 06:16 | PCM.EKG ---
#1 Interpretation EKG Date: 10/06/21 Time: 18:09 Rhythm: NSR Rate (Beats/Min): 106 [place]: Normal P-Wave: Present QRS: Normal ST-T: Normal QT: Normal Comparison: No Change (10/02/21) EKG Interpretation Comments: Sinus Tachycardia
--- NOTE | 2021-10-06 06:25 | CR ---
Indication: COVID-19 positive results. Worsened shortness of breath. Technique: Chest 1 view. Comparison: CT chest October 02, 2021. Findings/Impression: Cardiovascular and mediastinum: Heart size and vasculature are normal in caliber and appearance. Lungs and pleural space: Small ill-defined infiltrates in both lungs are more severe on the left. These are unchanged if not slightly worse. No effusions and no pneumothorax. Bones and soft tissues: No acute findings. Dictated by Liu Rosado MD @ 10/06/2021 6:23:58 AM (Electronically Signed)
[2021-10-06] MEDS ORDERED: Albuterol 8 GM Inhaler INH ONE (07:22)
[2021-10-06] MEDS ORDERED: Acetaminophen 500 MG Tab PO ONE (07:49)
[2021-10-06] MEDS ORDERED: Dexamethasone 10 MG/ML SDV IVPUSH ONE (07:49)
[2021-10-06] MEDS ORDERED: Sodium Chloride 0.9% 1,000 ML IV ONE (07:49)
[2021-10-06 08:31] LABS: BLOOD UREA NITROGEN,BUN 6 mg/dL (7.0-18.0); CARBON DIOXIDE,CO2 23.6 mmol/L (21.0-32.0); CHLORIDE,CL 98 mmol/L (98-107); GLUCOSE RANDOM 96 mg/dL (74-106); POTASSIUM,K 3.6 mmol/L (3.5-5.1); SODIUM,NA 139 mmol/L (136-145)
--- NOTE | 2021-10-06 10:51 | PCM.HP.2 ---
<MichaelJasbirgabriel - Last Filed: 10/06/21 11:08> H&P History of Present Illness - General Date of Service: 10/06/21 Admit Problem/Dx: Admission Diagnosis/Problem Admission Diagnosis/Problem Pneumonia - History of Present Illness Initial Comments - Free Text/Narative: 30-year-old female no past medical history presents to the ER with complaints of shortness of breath and cough after testing positive for Covid 4 days ago. Patient states that her symptoms started 5 days ago and she tested positive on home test. She presented to the ER 4 days ago and tested positive for COVID-19 but was not hypoxic and was sent home. Patient came back stating she felt short of breath and was sent home once again. Today patient insists that she is unable to breathe and will be admitted for COVID-19. Patient denies abdominal pain and diarrhea. Patient denies changes of taste or smell. Patient endorses a fever and night chills. generalized Pain Score (Numeric/FACES): 5 - Related Data Allergies/Adverse Reactions: Allergies Allergy/AdvReac Type Severity Reaction Status Date / Time No Known Allergies Allergy Verified 10/06/21 05:47 Home Medications: Home Meds Ondansetron [Zofran ODT] 4 mg PO Q6H PRN #10 tab.dis 10/02/21 [Rx] Promethazine [Phenergan] 25 mg PO Q8H PRN #10 tab 10/04/21 [Rx] Acetaminophen [Tylenol] 650 mg PO Q4H PRN tablet 10/07/21 [Rx] Benzonatate [Tessalon Perles] 100 mg PO TID PRN #30 cap 10/07/21 [Rx] Codeine/guaiFENesin [Robitussin AC] 5 ml PO Q6H PRN #200 ml 10/07/21 [Rx] Past Medical History HEENT History: Reports: None Cardiovascular History: Reports: Hypertension Respiratory History: Reports: None Gastrointestinal History: Reports: None Genitourinary History: Reports: None 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 Musculoskeletal History: Reports: None Neurological History: Reports: None Psychiatric History: Reports: None Endocrine/Metabolic History: Reports: None Insulin Pump Model and Cutter First: None Hematologic History: Reports: None Immunologic History: Reports: None Oncologic (Cancer) History: Reports: None Dermatologic History: Reports: None - Infectious Disease History Infectious Disease History: Reports: Novel Coronavirus - Past Surgical History GI Surgical History: Reports: Appendectomy Social & Family History - Family History Family Medical History: No Pertinent Family History - Caffeine Use Caffeine Use: Reports: None - Recreational Drug Use Recreational Drug Use: No H&P Review of Systems - Review of Systems: Review Of Systems: See Below General: Reports: Fever, Chills HEENT: Denies: Rhinitis, Post Nasal Drip Pulmonary: Reports: Shortness of Breath, Cough. Denies: Wheezing, Sputum Cardiovascular: Denies: Chest Pain, Palpitations Gastrointestinal: Denies: Abdominal Pain, Constipation, Diarrhea, Nausea, Vomiting Genitourinary: Denies: Dysuria Musculoskeletal: Denies: Leg Pain Skin: Denies: Rash Exam - Exam Exam: See Below - Vital Signs Vital Signs: Last Vital Signs Temp 102.4 F H 10/06/21 05:40 Pulse 102 H 10/06/21 09:10 Resp 18 10/06/21 09:10 BP 126/73 10/06/21 09:10 Pulse Ox 94 L 10/06/21 09:10 Weight: 220 lb - Exam Quality Assessment: Supplemental Oxygen General: Alert, Oriented, Cooperative, Mild Distress HEENT: Conjunctiva Clear, EACs Clear Neck: Supple, Trachea Midline Lungs: Clear to Auscultation, Decreased Breath Sounds Cardiovascular: Regular Rhythm GI/Abdominal Exam: Normal Bowel Sounds, Soft, Non-Tender Back Exam: Normal Inspection, Full Range of Motion Extremities: Normal Inspection, Normal Range of Motion. No: Angela's Sign, Leg Pain Peripheral Pulses: 2+: Dorsalis Pedis (L), Dorsalis Pedis (R) Skin: Warm, Dry, Intact Neurological: Cranial Nerves Intact Neuro Extensive - Mental Status: Alert, Oriented x3 - Patient Data Lab Results Last 24 hrs: Laboratory Results - last 24 hr 10/06/21 10/06/21 Range/Units 08:00 08:00 WBC 4.56 (4.0-11.0) K/uL RBC 4.99 (4.30-5.90) M/uL Hgb 15.1 (12.0-16.0) g/dL Hct 43.8 (36.0-46.0) % MCV 87.8 (80.0-98.0) fL MCH 30.3 (27.0-32.0) pg MCHC 34.5 (31.0-37.0) g/dL RDW Std Deviation 41.7 (28.0-62.0) fl RDW Coeff of [place] 13 (11.0-15.0) % Plt Count 144 L (150-400) K/uL MPV 9.40 (7.40-12.00) fL Neut % (Auto) 82.9 H (48.0-80.0) % Lymph % (Auto) 12.5 L (16.0-40.0) % Jack % (Auto) 3.5 (0.0-15.0) % Eos % (Auto) 0.9 (0.0-7.0) % Baso % (Auto) 0.2 (0.0-1.5) % Neut # (Auto) 3.8 (1.4-5.7) K/uL Lymph # (Auto) 0.6 (0.6-2.4) K/uL Jack # (Auto) 0.2 (0.0-0.8) K/uL Eos # (Auto) 0.0 (0.0-0.7) K/uL Baso # (Auto) 0.0 (0.0-0.1) K/uL Nucleated RBC % 0.0 /100WBC Nucleated RBCs # 0 K/uL Sodium 139 (136-145) mmol/L Potassium 3.6 (3.5-5.1) mmol/L Chloride 98 (98-107) mmol/L Carbon Dioxide 23.6 (21.0-32.0) mmol/L BUN 6 L (7.0-18.0) mg/dL Creatinine 0.9 (0.6-1.0) mg/dL Est Cr Clr Drug Dosing 69.60 mL/min Estimated GFR (MDRD) > 60.0 ml/min Glucose 96 (74-106) mg/dL Calcium 8.8 (8.5-10.1) mg/dL Total Bilirubin 0.4 (0.2-1.0) mg/dL AST 89 H (15-37) IU/L ALT 79 H (14-63) IU/L Alkaline Phosphatase 60 (46-116) U/L C-Reactive Protein 21.60 H (0.00-0.90) mg/dL Total Protein 7.9 (6.4-8.2) g/dL Albumin 3.3 L (3.4-5.0) g/dL Globulin 4.6 H (2.6-4.0) g/dL Albumin/Globulin Ratio 0.7 L (0.9-1.6) Result Diagrams: 10/06/21 08:00 10/06/21 08:00 Sepsis Event Note - Evaluation Sepsis Screening Result: No Definite Risk - Focused Exam Vital Signs: Vital Signs Temp Pulse Resp BP Pulse Ox 10/06/21 09:10 102 H 18 126/73 94 L 10/06/21 08:26 103 H 19 132/82 94 L 10/06/21 07:45 78 L 10/06/21 05:40 102.4 F H 118 H 24 H 147/88 H 93 L - Problem List (1) Hypoxia SNOMED Code(s): 706302769 ICD Code: R09.02 - HYPOXEMIA Status: Acute Current Visit: Yes (2) COVID-19 SNOMED Code(s): 200835064 ICD Code: U07.1 - COVID-19 Status: Acute Current Visit: Yes Problem List Initiated/Reviewed/Updated: Yes Orders Last 24hrs: Active Orders 24 hr Category Date Time Status Patient Status [ADT] Routine ADT 10/06/21 08:42 Active RT Post Treatment Assessment [RC] Click to Edit Care 10/06/21 07:22 Active RT Pre-Treatment Assessment [RC] Click to Edit Care 10/06/21 07:22 Active INR,PT,PROTHROMBIN TIME [COAG] Routine Lab 10/06/21 10:42 Ordered Saline Lock Insert [OM.PC] Stat Oth 10/06/21 07:49 Ordered Assessment/Plan Comment:: COVID-19 pneumonia: -Oxygen therapy. Wean as tolerated. Incentive spirometry. Prone positioning. Lovenox for DVT ppx -Dexamethasone. <Alin Roberson - Last Filed: 10/07/21 11:24> H&P History of Present Illness - General Admit Problem/Dx: Admission Diagnosis/Problem Admission Diagnosis/Problem Pneumonia Exam - Vital Signs Vital Signs: Last Vital Signs Temp 98.4 F 10/07/21 08:00 Pulse 90 10/07/21 08:00 Resp 16 10/07/21 08:00 BP 127/83 10/07/21 08:00 Pulse Ox 93 L 10/07/21 10:53 - Patient Data Lab Results Last 24 hrs: Laboratory Results - last 24 hr 10/07/21 Range/Units 05:58 WBC 2.96 L (4.0-11.0) K/uL RBC 4.65 (4.30-5.90) M/uL Hgb 13.9 (12.0-16.0) g/dL Hct 41.6 (36.0-46.0) % MCV 89.5 (80.0-98.0) fL MCH 29.9 (27.0-32.0) pg MCHC 33.4 (31.0-37.0) g/dL RDW Std Deviation 43.5 (28.0-62.0) fl RDW Coeff of [place] 13 (11.0-15.0) % Plt Count 196 (150-400) K/uL MPV 9.40 (7.40-12.00) fL Nucleated RBC % 0.0 /100WBC Nucleated RBCs # 0 K/uL Result Diagrams: 10/07/21 05:58 10/06/21 08:00 Sepsis Event Note - Focused Exam Vital Signs: Vital Signs Temp Pulse Resp BP Pulse Ox Pulse Ox 10/07/21 10:53 93 L 10/07/21 08:00 98.4 F 90 16 127/83 93 L 10/07/21 03:04 97.8 F 95 18 134/88 92 L 10/07/21 00:04 98.3 F 96 20 132/83 92 L - Problem List (1) Acute hypoxemic respiratory failure due to COVID-19 SNOMED Code(s): 789022108 ICD Code: U07.1 - COVID-19; J96.01 - ACUTE RESPIRATORY FAILURE WITH HYPOXIA Status: Acute Current Visit: Yes (2) COVID-19 virus infection SNOMED Code(s): 812551308 ICD Code: U07.1 - COVID-19 Status: Acute Current Visit: Yes (3) Morbid obesity SNOMED Code(s): 087837430 ICD Code: E66.01 - MORBID (SEVERE) OBESITY DUE TO EXCESS CALORIES Status: Acute Current Visit: Yes (4) Full code status SNOMED Code(s): 684955383 ICD Code: Z78.9 - OTHER SPECIFIED HEALTH STATUS Status: Acute Current Visit: Yes Orders Last 24hrs: Active Orders 24 hr Category Date Time Status Ambulate [RC] ASDIRECTED Care 10/06/21 10:53 Active Antiembolic Devices [RC] PER UNIT ROUTINE Care 10/06/21 11:00 Active Oxygen Therapy [RC] PRN Care 10/06/21 10:53 Active RT Aerosol Therapy [RC] ASDIRECTED Care 10/06/21 11:00 Active Ready for Discharge [RC] PER UNIT ROUTINE Care 10/07/21 10:53 Active VTE/DVT Education [RC] PER UNIT ROUTINE Care 10/06/21 10:53 Active Vital Signs [RC] Q4H Care 10/06/21 10:53 Active Regular Diet [DIET] Diet 10/06/21 Lunch Active CBC W/O DIFF,HEMOGRAM [HEME] DAILY Lab 10/08/21 05:11 Ordered CBC W/O DIFF,HEMOGRAM [HEME] DAILY Lab 10/09/21 05:11 Ordered Acetaminophen [TylenoL] Med 10/06/21 10:53 Active 650 mg PO Q4H PRN Albuterol [Proventil Neb Soln] Med 10/06/21 10:53 Active 2.5 mg NEB Q2H PRN Enoxaparin [Lovenox] Med 10/08/21 06:00 Active 40 mg SUBCUT DAILY Ondansetron [Zofran] Med 10/06/21 10:53 Active 4 mg IVPUSH Q6H PRN dexAMETHasone Med 10/07/21 09:00 Active 6 mg PO DAILY polyethylene glycoL 3350 [MiraLAX] Med 10/06/21 10:53 Active 17 gm PO DAILY PRN Sequential Compression Device [OM.PC] Per Unit Routine Oth 10/06/21 10:56 Ordered Resuscitation Status Routine Resus Stat 10/06/21 10:53 Ordered Medication Orders Acetaminophen (Acetaminophen 325 Mg Tab) 650 mg PO Q4H PRN PRN Reason: Pain (Mild 1-3)/fever Albuterol (Albuterol 0.083% 2.5 Mg/3 Ml Neb Soln) 2.5 mg NEB Q2H PRN PRN Reason: Shortness Of Breath/wheezing Last Admin: 10/07/21 00:06 Dose: 2.5 mg Documented by: RONNY Dexamethasone (Dexamethasone 4 Mg Tab) 6 mg PO DAILY CATRACHITO Last Admin: 10/07/21 09:13 Dose: 6 mg Documented by: OSIEL Enoxaparin Sodium (Enoxaparin 40 Mg/0.4 Ml Syringe) 40 mg SUBCUT DAILY [facility] Ondansetron HCl (Ondansetron 4 Mg/2 Ml Sdv) 4 mg IVPUSH Q6H PRN PRN Reason: Nausea/Vomiting Polyethylene Glycol (Polyethylene Glycol 3350 Powder 17 Gm Packet) 17 gm PO DAILY PRN PRN Reason: Constipation Assessment/Plan Comment:: Acute hypoxemic respiratory failure due to COVID 19 oxygen, proning, incentive spirometry COVID pneumonitis Decadron, lovenox SQ Morbid obesity life style modifications DVT prophylaxis lovenox. Full code status. - Mortality Measure Prognosis:: Good
[2021-10-06] MEDS ORDERED: Ondansetron 4 MG/2 ML SDV IVPUSH PRN (10:53)
[2021-10-06] MEDS ORDERED: Polyethylene Glycol 3350 Powder 17 GM Packet PO PRN (10:53)
[2021-10-06] MEDS ORDERED: Acetaminophen 325 MG Tab PO PRN (10:53)
[2021-10-06] MEDS ORDERED: Albuterol 0.083% 2.5 MG/3 ML Neb Soln NEB PRN (10:53)
[2021-10-06] MEDS ORDERED: Enoxaparin 40 MG/0.4 ML Syringe SUBCUT SCH ×2 (11:00→11:15)
[2021-10-06] MEDS: Enoxaparin 40 MG/0.4 ML Syringe SUBCUT SCH (15:45)
[2021-10-07] MEDS: Enoxaparin 40 MG/0.4 ML Syringe SUBCUT SCH (03:06)
[2021-10-07] MEDS ORDERED: Dexamethasone 4 MG Tab PO SCH (09:00)
--- NOTE | 2021-10-07 09:37 | PCM.PN ---
- General Info Date of Service: 10/07/21 Admission Dx/Problem (Free Text): Admission Diagnosis/Problem Admission Diagnosis/Problem Pneumonia - Patient Data Vitals - Most Recent: Last Vital Signs Temp 98.4 F 10/07/21 08:00 Pulse 90 10/07/21 08:00 Resp 16 10/07/21 08:00 BP 127/83 10/07/21 08:00 Pulse Ox 93 L 10/07/21 08:00 Weight - Most Recent: 89.131 kg I&O - Last 24 Hours: Intake & Output 10/06/21 10/07/21 10/07/21 22:59 06:59 14:59 Intake Total 650 600 Output Total 875 Balance -225 600 Lab Results Last 24 Hours: Laboratory Results - last 24 hr 10/06/21 10/07/21 Range/Units 08:00 05:58 WBC 2.96 L (4.0-11.0) K/uL RBC 4.65 (4.30-5.90) M/uL Hgb 13.9 (12.0-16.0) g/dL Hct 41.6 (36.0-46.0) % MCV 89.5 (80.0-98.0) fL MCH 29.9 (27.0-32.0) pg MCHC 33.4 (31.0-37.0) g/dL RDW Std Deviation 43.5 (28.0-62.0) fl RDW Coeff of [place] 13 (11.0-15.0) % Plt Count 196 (150-400) K/uL MPV 9.40 (7.40-12.00) fL Nucleated RBC % 0.0 /100WBC Nucleated RBCs # 0 K/uL INR 0.99 Med Orders - Current: Current Medications Acetaminophen (Acetaminophen 325 Mg Tab) 650 mg PO Q4H PRN PRN Reason: Pain (Mild 1-3)/fever Albuterol (Albuterol 0.083% 2.5 Mg/3 Ml Neb Soln) 2.5 mg NEB Q2H PRN PRN Reason: Shortness Of Breath/wheezing Last Admin: 10/07/21 00:06 Dose: 2.5 mg Documented by: Dexamethasone (Dexamethasone 4 Mg Tab) 6 mg PO DAILY CATRACHITO Last Admin: 10/07/21 09:13 Dose: 6 mg Documented by: Enoxaparin Sodium (Enoxaparin 40 Mg/0.4 Ml Syringe) 40 mg SUBCUT DAILY [facility] Ondansetron HCl (Ondansetron 4 Mg/2 Ml Sdv) 4 mg IVPUSH Q6H PRN PRN Reason: Nausea/Vomiting Polyethylene Glycol (Polyethylene Glycol 3350 Powder 17 Gm Packet) 17 gm PO DAILY PRN PRN Reason: Constipation Discontinued Medications Acetaminophen (Acetaminophen 500 Mg Tab) 1,000 mg PO ONETIME ONE Stop: 10/06/21 07:50 Last Admin: 10/06/21 07:58 Dose: 1,000 mg Documented by: Albuterol (Albuterol 8 Gm Inhaler) 1 gm INH ONETIME ONE Stop: 10/06/21 07:23 Last Admin: 10/06/21 07:49 Dose: 1 puff Documented by: Dexamethasone (Dexamethasone 10 Mg/Ml Sdv) 6 mg IVPUSH ONETIME ONE Stop: 10/06/21 07:50 Last Admin: 10/06/21 07:58 Dose: 6 mg Documented by: Enoxaparin Sodium (Enoxaparin 40 Mg/0.4 Ml Syringe) 40 mg SUBCUT Q24H [facility] Last Admin: 10/06/21 14:34 Dose: Not Given Documented by: Enoxaparin Sodium (Enoxaparin 40 Mg/0.4 Ml Syringe) 40 mg SUBCUT Q12H [facility] Last Admin: 10/06/21 14:43 Dose: Not Given Documented by: Enoxaparin Sodium (Enoxaparin 40 Mg/0.4 Ml Syringe) 40 mg SUBCUT Q12H [facility] Last Admin: 10/07/21 03:06 Dose: 40 mg Documented by: Sodium Chloride (Normal Saline) 1,000 mls @ 999 mls/hr IV .Bolus ONE Stop: 10/06/21 08:49 Last Admin: 10/06/21 07:59 Dose: 999 mls/hr Documented by: Ketorolac Tromethamine (Ketorolac 30 Mg/Ml Sdv) 30 mg IM ONETIME STA Stop: 10/06/21 05:51 Last Admin: 10/06/21 06:03 Dose: 30 mg Documented by: - Patient Data Lab Results Last 24 hrs: Laboratory Results - last 24 hr 10/06/21 10/07/21 Range/Units 08:00 05:58 WBC 2.96 L (4.0-11.0) K/uL RBC 4.65 (4.30-5.90) M/uL Hgb 13.9 (12.0-16.0) g/dL Hct 41.6 (36.0-46.0) % MCV 89.5 (80.0-98.0) fL MCH 29.9 (27.0-32.0) pg MCHC 33.4 (31.0-37.0) g/dL RDW Std Deviation 43.5 (28.0-62.0) fl RDW Coeff of [place] 13 (11.0-15.0) % Plt Count 196 (150-400) K/uL MPV 9.40 (7.40-12.00) fL Nucleated RBC % 0.0 /100WBC Nucleated RBCs # 0 K/uL INR 0.99 Result Diagrams: 10/07/21 05:58 10/06/21 08:00 Sepsis Event Note - Evaluation Sepsis Screening Result: No Definite Risk - Focused Exam Vital Signs: Vital Signs Temp Pulse Resp BP Pulse Ox 10/07/21 08:00 98.4 F 90 16 127/83 93 L 10/07/21 03:04 97.8 F 95 18 134/88 92 L 10/07/21 00:04 98.3 F 96 20 132/83 92 L - My Orders Last 24 Hours: My Active Orders 10/08/21 06:00 Enoxaparin [Lovenox] 40 mg SUBCUT DAILY - Plan Plan:: COVID-19 pneumonia: -Oxygen therapy. Wean as tolerated. Incentive spirometry. Prone positioning. Lovenox for DVT ppx -Dexamethasone.
--- NOTE | 2021-10-07 10:54 | PCM.DCSUM1 ---
Discharge Summary - Hospital Course Brief History: 30-year-old female no past medical history presents to the ER with complaints of shortness of breath and cough after testing positive for Covid 4 days ago. Patient states that her symptoms started 5 days ago and she tested positive on home test. She presented to the ER 4 days ago and tested positive for COVID-19 but was not hypoxic and was sent home. Patient came back stating she felt short of breath and was sent home once again. Today patient insists that she is unable to breathe and will be admitted for COVID-19. Patient denies abdominal pain and diarrhea. Patient denies changes of taste or smell. Patient endorses a fever and night chills. Diagnosis: Stroke: No - Discharge Data Discharge Date: 10/07/21 Discharge Disposition: Home, Self-Care 01 Condition: Stable - Referral to Home Health Primary Care Physician: Jonathan Klein MD - Patient Summary/Data Hospital Course: Admission diagnoses; COVID-19 Dyspnea Mild hypoxia Discharge diagnosis: COVID-19 Dyspneaimproved Josselyn was admitted secondary to COVID-19, dyspnea and mild hypoxia. She has be en in and out of the ER with complaints of shortness of breath. She reports overnight she is feeling improved shortness of breath is mild she is currently on room air satting 94%. She feels safe enough to go home today. She is eating and drinking well and has been up ambulating in the room. She will be discharged home today with as needed cough medicine guaifenesin codeine along with Tessalon Perles. She will also be provided albuterol inhaler and dexamethasone for 8 more days. She is to continue to isolate 10 days from symptom more positive test. Continue to mask while in public and encourage vaccination along with booster. Patient is to return to the ER clinic if concerns should arise sooner. Follow-up with PCP in 7 to 10 days. - Patient Instructions Diet: Regular Diet as Tolerated Activity: As Tolerated, Rest and Relax Today Driving: Do Not Drive (if taking codeine cough medicine) Showering/Bathing: May Shower Notify Provider of: Fever, Increased Pain, Swelling and Redness, Drainage, Nausea and/or Vomiting Other/Special Instructions: Continue to Isolate for total 10 days since postive test. Continue deep breathing and coughing at home. Continue to use incentive spirometer 10 times every 1 hour. - Discharge Plan *PRESCRIPTION DRUG MONITORING PROGRAM REVIEWED*: Not Applicable *COPY OF PRESCRIPTION DRUG MONITORING REPORT IN PATIENT YARELI: Not Applicable Prescriptions/Med Rec: dexAMETHasone [Decadron] 6 mg PO DAILY #8 tablet Codeine/guaiFENesin [Robitussin AC] 5 ml PO Q6H PRN #200 ml PRN Reason: Cough Benzonatate [Tessalon Perles] 100 mg PO TID PRN #30 cap PRN Reason: Cough Albuterol [Ventolin HFA] 2 puff INH Q4H PRN #18 gm PRN Reason: Dyspnea Home Medications: Home Meds Ondansetron [Zofran ODT] 4 mg PO Q6H PRN #10 tab.dis 10/02/21 [Rx] Promethazine [Phenergan] 25 mg PO Q8H PRN #10 tab 10/04/21 [Rx] Acetaminophen [Tylenol] 650 mg PO Q4H PRN tablet 10/07/21 [Rx] Albuterol [Ventolin HFA] 2 puff INH Q4H PRN #18 gm 10/07/21 [Rx] Benzonatate [Tessalon Perles] 100 mg PO TID PRN #30 cap 10/07/21 [Rx] Codeine/guaiFENesin [Robitussin AC] 5 ml PO Q6H PRN #200 ml 10/07/21 [Rx] dexAMETHasone [Decadron] 6 mg PO DAILY #8 tablet 10/07/21 [Rx] Oxygen Therapy Mode: Room Air Patient Handouts: Hypoxia, COVID-19 Frequently Asked Questions, COVID-19 Vaccine Information, Acetaminophen; Codeine oral solution, COVID-19: How to Protect Yourself and Others - [facility], Benzonatate capsules Referrals: Jonathan Klein MD [Primary Care Provider] - 10/21/21 9:00 am - Discharge Summary/Plan Comment DC Time >30 min.: No Total # of Minutes for Discharge Time: 15 minutes - Patient Data Vitals - Most Recent: Last Vital Signs Temp 98.4 F 10/07/21 08:00 Pulse 90 10/07/21 08:00 Resp 16 10/07/21 08:00 BP 127/83 10/07/21 08:00 Pulse Ox 93 L 10/07/21 08:00 Weight - Most Recent: 89.131 kg I&O - Last 24 hours: Intake & Output 10/06/21 10/07/21 10/07/21 22:59 06:59 14:59 Intake Total 650 600 Output Total 875 Balance -225 600 Lab Results - Last 24 hrs: Laboratory Results - last 24 hr 10/06/21 10/07/21 Range/Units 08:00 05:58 WBC 2.96 L (4.0-11.0) K/uL RBC 4.65 (4.30-5.90) M/uL Hgb 13.9 (12.0-16.0) g/dL Hct 41.6 (36.0-46.0) % MCV 89.5 (80.0-98.0) fL MCH 29.9 (27.0-32.0) pg MCHC 33.4 (31.0-37.0) g/dL RDW Std Deviation 43.5 (28.0-62.0) fl RDW Coeff of [place] 13 (11.0-15.0) % Plt Count 196 (150-400) K/uL MPV 9.40 (7.40-12.00) fL Nucleated RBC % 0.0 /100WBC Nucleated RBCs # 0 K/uL INR 0.99 Med Orders - Current: Current Medications Acetaminophen (Acetaminophen 325 Mg Tab) 650 mg PO Q4H PRN PRN Reason: Pain (Mild 1-3)/fever Albuterol (Albuterol 0.083% 2.5 Mg/3 Ml Neb Soln) 2.5 mg NEB Q2H PRN PRN Reason: Shortness Of Breath/wheezing Last Admin: 10/07/21 00:06 Dose: 2.5 mg Documented by: Dexamethasone (Dexamethasone 4 Mg Tab) 6 mg PO DAILY [facility] Last Admin: 10/07/21 09:13 Dose: 6 mg Documented by: Enoxaparin Sodium (Enoxaparin 40 Mg/0.4 Ml Syringe) 40 mg SUBCUT DAILY [facility] Ondansetron HCl (Ondansetron 4 Mg/2 Ml Sdv) 4 mg IVPUSH Q6H PRN PRN Reason: Nausea/Vomiting Polyethylene Glycol (Polyethylene Glycol 3350 Powder 17 Gm Packet) 17 gm PO DAILY PRN PRN Reason: Constipation Discontinued Medications Acetaminophen (Acetaminophen 500 Mg Tab) 1,000 mg PO ONETIME ONE Stop: 10/06/21 07:50 Last Admin: 10/06/21 07:58 Dose: 1,000 mg Documented by: Albuterol (Albuterol 8 Gm Inhaler) 1 gm INH ONETIME ONE Stop: 10/06/21 07:23 Last Admin: 10/06/21 07:49 Dose: 1 puff Documented by: Dexamethasone (Dexamethasone 10 Mg/Ml Sdv) 6 mg IVPUSH ONETIME ONE Stop: 10/06/21 07:50 Last Admin: 10/06/21 07:58 Dose: 6 mg Documented by: Enoxaparin Sodium (Enoxaparin 40 Mg/0.4 Ml Syringe) 40 mg SUBCUT Q24H [facility] Last Admin: 10/06/21 14:34 Dose: Not Given Documented by: Enoxaparin Sodium (Enoxaparin 40 Mg/0.4 Ml Syringe) 40 mg SUBCUT Q12H [facility] Last Admin: 10/06/21 14:43 Dose: Not Given Documented by: Enoxaparin Sodium (Enoxaparin 40 Mg/0.4 Ml Syringe) 40 mg SUBCUT Q12H [facility] Last Admin: 10/07/21 03:06 Dose: 40 mg Documented by: Sodium Chloride (Normal Saline) 1,000 mls @ 999 mls/hr IV .Bolus ONE Stop: 10/06/21 08:49 Last Admin: 10/06/21 07:59 Dose: 999 mls/hr Documented by: Ketorolac Tromethamine (Ketorolac 30 Mg/Ml Sdv) 30 mg IM ONETIME STA Stop: 10/06/21 05:51 Last Admin: 10/06/21 06:03 Dose: 30 mg Documented by: - Exam Quality Assessment: Denies: Supplemental Oxygen General: Reports: Alert, Oriented, Cooperative, No Acute Distress HEENT: Reports: Pupils Equal, Pupils Reactive Lungs: Reports: Clear to Auscultation, Normal Respiratory Effort. Denies: Decreased Breath Sounds, Crackles Cardiovascular: Reports: Regular Rate, Regular Rhythm GI/Abdominal Exam: Normal Bowel Sounds, Soft, Non-Tender Back Exam: Reports: Normal Inspection, Full Range of Motion Skin: Reports: Warm, Dry, Intact Neurological: Reports: No New Focal Deficit Psy/Mental Status: Reports: Alert, Normal Affect, Normal Mood
[2021-10-08] MEDS ORDERED: Enoxaparin 40 MG/0.4 ML Syringe SUBCUT SCH (06:00)
== END 2021-10-07 11:50 | disposition home or self-care (01) | DRG 177 ==
LOC: MW.ED 05:39 → MW.MS 08:42 → MW.ED 09:25
PROVIDERS: ADMIT Hospitalist; ATTEND Hospitalist
PROC: 8E0ZXY6 Isolation (ICD-10-PCS; principal; 2021-10-06)
PROC: 3E0333Z Introduction of Anti-inflammatory into Peripheral Vein, Percutaneous Approach (ICD-10-PCS; 2021-10-06)
DX: U07.1 COVID-19 (principal); J12.82 Pneumonia due to coronavirus disease 2019; J96.01 Acute respiratory failure with hypoxia; E66.01 Morbid (severe) obesity due to excess calories; I10 Essential (primary) hypertension; Z68.37 Body mass index [BMI] 37.0-37.9, adult; Z90.49 Acquired absence of other specified parts of digestive tract
CPT/HCPCS: 36415; 71045; 71045-26; 80053; 85025; 85027; 85610; 86140; 93005; 96372; 96374; 99285-25; A9270-GY; J1100; J1650; J1885; J7030; J8540